=== PATIENT | female | born 1995 | race Caucasian/White ===

== ENCOUNTER → 2021-04-30 | Outpatient (CLI) | payer MEDICAID, OTHER | END | disposition home or self-care (01) | LOC: LABWHC1 11:51 | PROVIDERS: ATTEND Emergency Medicine | DX: Z20.822 Contact with and (suspected) exposure to COVID-19 (principal) | CPT/HCPCS: 87635 ==

== ENCOUNTER → 2021-05-01 | Outpatient (CLI) | payer MEDICAID, OTHER | END | disposition home or self-care (01) | LOC: LABWHC1 12:25 | PROVIDERS: ATTEND Emergency Medicine | DX: Z20.822 Contact with and (suspected) exposure to COVID-19 (principal) | CPT/HCPCS: 87635 ==

== ENCOUNTER → 2021-07-19 | Outpatient (CLI) | payer MEDICAID, OTHER | END | disposition home or self-care (01) | LOC: LABWHC1 15:36 | PROVIDERS: ATTEND Emergency Medicine | DX: U07.1 COVID-19 (principal) | CPT/HCPCS: 87635 ==

== ENCOUNTER → 2021-07-20 | Outpatient (CLI) | payer MEDICAID, OTHER | END | disposition home or self-care (01) | LOC: LABMAIN 20:03 | PROVIDERS: ATTEND Emergency Medicine | DX: Z20.822 Contact with and (suspected) exposure to COVID-19 (principal) | CPT/HCPCS: 87635 ==

== ENCOUNTER → 2021-07-20 | Outpatient (CLI) | payer MEDICAID, OTHER | END | disposition home or self-care (01) | LOC: LABWHC1 15:28 | PROVIDERS: ATTEND Emergency Medicine | DX: Z53.9 Procedure and treatment not carried out, unspecified reason (principal) ==

== ENCOUNTER 2024-07-26 03:09 | Inpatient (IN) | payer OTHER ==
[2024-07-26] MEDS: LACTATED RINGERS 1,000 ML IV SCH (03:40)
[2024-07-26] MEDS ORDERED: OXYTOCIN 10 UNIT/ML 1 ML VIAL IM PRN (03:47)
[2024-07-26] MEDS ORDERED: miSOPROStoL 200 MCG TAB PO PRN ×2 (03:47→18:31)
[2024-07-26] MEDS ORDERED: CARBOPROST TROMETHAMINE 250 MCG/ML 1 ML AMP IM PRN ×2 (03:47→07:25)
[2024-07-26] MEDS ORDERED: miSOPROStoL 200 MCG TAB RECTAL PRN (03:47)
[2024-07-26] MEDS ORDERED: LIDOCAINE 0.5% (PF) 5 MG/ML (50 ML SDV) SQ PRN (03:47)
[2024-07-26] MEDS ORDERED: METHYLERGONOVINE 0.2 MG/ML 1 ML AMP IM PRN (03:47)
[2024-07-26] MEDS ORDERED: TERBUTALINE 1 MG/ML VIAL SQ PRN (03:47)
[2024-07-26 04:12] LABS: Anisocytosis Slight; Basophils % (A) 0 %; Eosinophils % (A) 0 %; HCT 24.6 % (34.0-46.0); HGB 7.6 gm/dL (11.4-16.0); Hypochromasia Marked; Lymphocytes # (A) 2.1 k/uL (1.0-4.8); Lymphocytes % (A) 19 %; MCH 21.1 pg (25.0-35.0); MCHC 30.9 g/dL (31.0-37.0); MCV 68.3 fL (80.0-100.0); Mean Platelet Volume 8.4; Microcytosis Marked; Monocytes # (A) 0.5 k/uL (0-1.0); Monocytes % (A) 5 %; Neutrophils # (A) 7.9 k/uL (1.3-7.7); Neutrophils % (A) 74 %; Platelet Count 287 k/uL (150-450); Poikilocytosis Moderate; RBC 3.59 m/uL (3.80-5.40); RDW 16.5 % (11.5-15.5); WBC 10.7 k/uL (3.8-10.6)
[2024-07-26 04:17] LABS: Appearance,Urine Clear (Clear); Bacteria,Urine Rare /hpf; Bilirubin,Urine Negative (Negative); Blood,Urine Moderate (Negative); Color,Urine Yellow; Glucose,Urine (UA) Negative (Negative); Hyaline Casts,Urine 9 /lpf (0-2); Ketones,Urine Negative (Negative); Leukocyte Esterase,Urine Negative (Negative); Mucus,Urine Few /hpf; Nitrite,Urine Negative (Negative); Protein,Urine 2+ (Negative); RBC,Urine 14 /hpf (0-5); Specific Gravity,Urine 1.029 (1.001-1.035); Squamous Epithelial Cell,Urine 5 /hpf (0-4); Urobilinogen,Urine <2.0 mg/dL (<2.0); WBC,Urine 3 /hpf (0-5)
[2024-07-26 04:26] LABS: ALT 11 U/L (4-34); AST 21 U/L (14-36); African American GFR (CKD) >90 (>60 ml/min/1.73 sqM); Blood Urea Nitrogen 17 mg/dL (7-17); LDH 248 U/L (120-246); Non-African American GFR(CKD) >90 (>60 ml/min/1.73 sqM); Uric Acid 5.3 mg/dL (3.7-7.4)
[2024-07-26 04:27] LABS: Creatinine,Urine Random 228.1 mg/dL; INR 0.9 (<1.2); Protein/Creatinine Ratio,Urine 0.53; Prothrombin Time 9.8 sec (10.0-12.5)
[2024-07-26 04:30] LABS: Partial Thromboplastin Time 20.4 sec (22.0-30.0)
[2024-07-26 07:18] LABS: Glucose,Whole Blood 91 mg/dL (70-110)
[2024-07-26] MEDS: AMPICILLIN 2,000 MG in SODIUM CHLORIDE 0.9% 100 ML IVPB STA (07:33)
[2024-07-26] MEDS: BUTORPHANOL 1 MG/ML 1 ML VIAL IV PRN (07:37)
[2024-07-26] MEDS ORDERED: SODIUM CHLORIDE 0.9% 250 ML BAG ONE (08:38)
[2024-07-26] MEDS ORDERED: ROPIVACAINE 5 MG/ML 30 ML VIAL ONE (08:38)
[2024-07-26] MEDS ORDERED: fentaNYL (PF) 50 MCG/ML 5 ML AMP ONE (08:38)
[2024-07-26] MEDS: AMPICILLIN 1,000 MG in SODIUM CHLORIDE 0.9% 50 ML IVPB SCH (11:09)
[2024-07-26 11:49] LABS: Glucose,Whole Blood 83 mg/dL (70-110)
[2024-07-26] MEDS: CITRIC ACID-SODIUM CITRATE 15 ML CUP PO ONE (15:54)
[2024-07-26] MEDS ORDERED: HYDROmorphone (PF) 1 MG/ML ONE (16:10)
[2024-07-26] MEDS ORDERED: ONDANSETRON 4 MG/2 ML VIAL ONE (16:10)
[2024-07-26] MEDS ORDERED: OXYTOCIN 30 UNITS/500 ML NS BAG IV ONE (16:10)
[2024-07-26] MEDS ORDERED: MORPHINE SULFATE (PF) 0.3 MG/0.3 ML SYR ONE (16:10)
[2024-07-26] MEDS ORDERED: KETOROLAC 30 MG/ML 1 ML VIAL ONE (16:10)
[2024-07-26] MEDS ORDERED: NALBUPHINE (ANES) 10 MG/ML - 1 ML AMP ONE (16:10)
[2024-07-26] MEDS ORDERED: diphenhydrAMINE 25 MG CAP PO PRN (16:50)
[2024-07-26] MEDS ORDERED: ZOLPIDEM 5 MG TAB PO PRN (16:50)
[2024-07-26] MEDS ORDERED: METOCLOPRAMIDE 5 MG/ML 2 ML VIAL IVP PRN (16:50)
[2024-07-26] MEDS ORDERED: diphenhydrAMINE 50 MG/ML 1 ML VIAL IVP PRN ×2 (16:50)
[2024-07-26] MEDS ORDERED: LANOLIN CREAM 1 GM TUBE TOPICAL PRN (16:50)
[2024-07-26] MEDS ORDERED: ONDANSETRON 4 MG/2 ML VIAL IVP PRN (16:50)
[2024-07-26] MEDS ORDERED: diphenhydrAMINE 50 MG CAP PO PRN (16:50)
[2024-07-26] MEDS ORDERED: NALOXONE 0.4 MG/ML 1 ML VIAL IV PRN (16:50)
[2024-07-26] MEDS ORDERED: OXYTOCIN 30 UNITS/500 ML NS 30 UNIT in SALINE 1 500ML.BAG IV SCH (17:00)
[2024-07-26] MEDS: TRANEXAMIC 1,000 MG/100ML-NACL 1,000 MG in EMPTY BAG 1 BAG IV PRN (18:58)
[2024-07-26] MEDS: HYDROmorphone 1 MG/ML 1 ML SYRINGE IVP STA (19:28)
[2024-07-26] MEDS: ACETAMINOPHEN IV (For NPO) 1,000 MG in EMPTY BAG 1 BAG IVPB STA (20:32)
[2024-07-27] MEDS: SENNOSIDES-DOCUSATE SODIUM 1 EACH TAB PO SCH (00:13)
[2024-07-27] MEDS: KETOROLAC 15 MG/ML 1 ML VIAL IVP SCH (00:37)
[2024-07-27 01:39] LABS: Anisocytosis Moderate; HCT 22.9 % (34.0-46.0); HGB 7.4 gm/dL (11.4-16.0); Hypochromasia Marked; MCH 25.3 pg (25.0-35.0); MCHC 32.5 g/dL (31.0-37.0); Mean Platelet Volume 8.2; Microcytosis Moderate; Platelet Count 193 k/uL (150-450); Poikilocytosis Moderate; RBC 2.94 m/uL (3.80-5.40); RDW 20.2 % (11.5-15.5); WBC 15.7 k/uL (3.8-10.6)
[2024-07-27 01:51] LABS: MCV 77.9 fL (80.0-100.0)
[2024-07-27] MEDS: LACTATED RINGERS 1,000 ML IV SCH (03:00)
[2024-07-27] MEDS: LACTATED RINGERS 1,000 ML IV ONE (03:00)
[2024-07-27] MEDS: ACETAMINOPHEN TAB 500 MG TAB PO SCH (04:14)
[2024-07-27 05:37] LABS: Anisocytosis Slight; Basophils % (A) 0 %; Eosinophils % (A) 0 %; HCT 21.7 % (34.0-46.0); Hypochromasia Marked; Lymphocytes # (A) 0.8 k/uL (1.0-4.8); Lymphocytes % (A) 6 %; MCHC 32.4 g/dL (31.0-37.0); MCV 77.2 fL (80.0-100.0); Microcytosis Moderate; Monocytes # (A) 0.6 k/uL (0-1.0); Monocytes % (A) 4 %; Neutrophils # (A) 12.8 k/uL (1.3-7.7); Neutrophils % (A) 89 %; Platelet Count 173 k/uL (150-450); Poikilocytosis Marked; RBC 2.81 m/uL (3.80-5.40); RDW 19.6 % (11.5-15.5); WBC 14.3 k/uL (3.8-10.6)
--- NOTE | 2024-07-27 07:57 | P.HPOB ---
History of Present Illness H&P Date: 07/26/24 Chief Complaint: spontaneous rupture of membranes 29-year-old presented at 38 weeks and 5 days complaining of rupture of amniotic membranes at 1300 on 07/25/2024. Patient presented 2 cm dilated 70% effaced and -2 station. She is nithin irregularly. heart tones category 1. Review of Systems All systems: negative Constitutional: Denies chills, Denies fever Eyes: denies blurred vision, denies pain Ears, nose, mouth and throat: Denies headache, Denies sore throat Cardiovascular: Denies chest pain, Denies shortness of breath Respiratory: Denies cough Gastrointestinal: Denies abdominal pain, Denies diarrhea, Denies nausea, Denies vomiting Genitourinary: Denies dysuria, Denies hematuria Musculoskeletal: Denies myalgias Integumentary: Denies pruritus, Denies rash Neurological: Denies numbness, Denies weakness Psychiatric: Denies anxiety, Denies depression Endocrine: Denies fatigue, Denies weight change Past Medical History Past Medical History: Asthma, Diabetes Mellitus, GERD/Reflux, Skin Disorder Additional Past Medical History / Comment(s): psoriasis History of Any Multi-Drug Resistant Organisms: None Reported Additional Past Surgical History / Comment(s): wisdom teeth Past Anesthesia/Blood Transfusion Reactions: No Reported Reaction Past Psychological History: ADD/ADHD, Anxiety, Depression Additional Psychological History / Comment(s): on paxil for depression Smoking Status: Never smoker Past Drug Use History: None Reported - Past Family History Mother Additional Family Medical History / Comment(s): substance abuse, mental health Medications and Allergies Home Medications Medication Instructions Recorded Confirmed Type Omeprazole [PriLOSEC] 10 mg PO DAILY 07/21/24 07/21/24 History PARoxetine HCL [Paxil] 30 mg PO DAILY 07/21/24 07/21/24 History Vit No.179/Iron/Folic 1 each PO DAILY 07/21/24 07/21/24 History [ Tablet] Allergies Allergy/AdvReac Type Severity Reaction Status Date / Time Sulfa (Sulfonamide Allergy Rash/Hives Verified 07/21/24 11:59 Antibiotics) Exam Osteopathic Statement: *. No significant issues noted on an osteopathic structural exam other than those noted in the History and Physical/Consult. Vital Signs Temp Pulse Pulse Resp BP BP Pulse Ox 07/27/24 05:40 98 F 72 17 120/71 07/27/24 04:51 17 07/27/24 04:40 75 17 109/71 07/27/24 03:40 97.9 F 67 17 111/67 07/27/24 02:40 65 16 125/63 07/27/24 01:40 96.4 F L 68 16 125/64 97 07/27/24 00:50 97.2 F L 70 16 111/62 97 07/26/24 23:30 97.4 F L 72 16 118/65 98 07/26/24 21:45 97.7 F 82 17 111/61 99 07/26/24 21:30 71 17 109/56 98 07/26/24 21:15 75 17 111/56 99 07/26/24 21:00 73 16 113/60 99 07/26/24 20:53 86 17 110/57 98 07/26/24 20:45 86 16 110/57 99 07/26/24 20:30 80 16 108/59 99 07/26/24 20:15 98.6 F 81 17 104/57 99 07/26/24 20:02 98.6 F 83 16 100/56 07/26/24 20:00 83 16 100/56 98 07/26/24 19:45 83 17 106/60 100 07/26/24 19:42 83 16 106/60 100 07/26/24 19:30 99.2 F 91 91 17 105/60 105/60 99 07/26/24 19:29 99.2 F 91 16 105/60 07/26/24 18:53 93 16 86/49 98 07/26/24 18:44 98.9 F 95 16 86/49 99 07/26/24 18:43 98.9 F 96 16 90/55 98 07/26/24 18:38 86 16 90/55 98 07/26/24 18:24 98.4 F 93 17 90/51 07/26/24 18:23 112 H 16 90/51 97 07/26/24 18:15 98.0 F 98 18 78/44 07/26/24 18:08 98 16 87/50 99 07/26/24 17:53 110 H 16 92/50 99 07/26/24 17:38 99 17 87/48 97 07/26/24 17:23 108 H 16 88/54 98 07/26/24 17:08 84 16 91/55 95 07/26/24 16:53 97.5 F L 90 17 87/54 95 07/26/24 11:27 97.1 F L 105 H 16 152/81 100 Intake and Output 07/26/24 07/27/24 07/27/24 22:59 06:59 14:59 Intake Total 1740 Output Total 3162 307 Balance -1422 -307 Intake: IV 500 Blood Product 1240 Rc As-1 Unit 310 [id number] Rc As-1 Unit 310 [id number] Output: Urine 190 150 Output, Quantitative 2972 157 Blood Loss Other: Voiding Method Indwelling Catheter Indwelling Catheter Heart: Regular rate and rhythm Lungs: Clear to auscultation bilaterally Abdomen: Soft, nontender Extremities: Negative Homans signl Results Result Diagrams: 07/27/24 05:09 07/26/24 03:50 Abnormal Lab Results - Last 24 Hours (Table) 07/26/24 07/27/24 07/27/24 Range/Units 03:50 01:09 05:09 WBC 15.7 H 14.3 H (3.8-10.6) k/uL RBC 2.94 L 2.81 L (3.80-5.40) m/uL Hgb 7.4 L 7.0 L (11.4-16.0) gm/dL Hct 22.9 L 21.7 L (34.0-46.0) % MCV 77.9 L D 77.2 L (80.0-100.0) fL RDW 20.2 H 19.6 H (11.5-15.5) % Neutrophils # 12.8 H (1.3-7.7) k/uL Lymphocytes # 0.8 L (1.0-4.8) k/uL Crossmatch See Detail Assessment and Plan (1) Spontaneous rupture of membranes Current Visit: Yes Status: Acute Code(s): VMB3071 - SNOMED Code(s): 60631 4005 (2) 38 weeks gestation of Current Visit: Yes Status: Acute Code(s): Z3A.38 - 38 WEEKS GESTATION OF SNOMED Code(s): 12341148 Plan: 1. Admit to family place 2. Pitocin augmentation if necessary 3. Anticipate normal vaginal delivery
--- NOTE | 2024-07-27 08:04 | P.OP ---
Date of Procedure: 07/26/24 Preoperative Diagnosis: 1.prolonged rupture of membranes 2. 38 weeks 5 days gestation 3. arrest of descent 4. tachycardia Postoperative Diagnosis: same Procedure(s) Performed: Primary low transverse Anesthesia: epidural Surgeon: Prachi Gonzalez [employer] Actor #1: Levi Dailey Estimated Blood Loss (ml): 819 IV fluids (ml): 1,000 Urine output (ml): 100 Pathology: other (placenta) Condition: stable Disposition: floor Indications for Procedure: 29-year-old presented at 38 weeks and 5 days with spontaneous rupture of membranes. Her cervix was 2 cm dilated when she presented and Pitocin augmentation had been started. At 18 hours of rupture ampicillin was started. She progressed slowly to complete and did have an epidural. Patient pushed for 3 hours without descent of the head. At this time, the baby started to have minimal variability and some tachycardia. Patient sent her oral was held at bedside. Need for expedited delivery was discussed and informed consent was obtained. section was called. Operative Findings: Viable female, Apgars 8, 9, weight 9 lbs. 10 oz. Normal uterus, tubes, ovaries. Description of Procedure: Patient was taken to the operating room where epidural anesthesia was found be adequate. She was prepped and draped in normal sterile fashion in dorsal supine position with a leftward tilt. Pfannenstiel skin incision was made the scalpel and carried through to the underlying layer of fascia with the scalpel. Fascia was incised in midline and carried bilaterally with the Pena scissors. The superior aspect of the fascial incision was grasped with Mckee clamps elevated and the underlying rectus muscles dissected off with the Pena's. Attention was then turned to inferior aspect of same incision which in a similar fashion was grasped tented up and the underlying rectus muscles dissected off with the Pena's. The rectus muscles were the midline and the peritoneum was identified tented up and entered sharply with the scalpel. The incision was extended superiorly and inferiorly with good visualization of the bladder. The bladder blade was inserted and the vesicouterine peritoneum was incised the Metzenbaums then carried bilaterally and bladder flap created digitally. A low transverse incision was then made on the uterus with the scalpel. This was carried bilaterally and digital manner. Infant's head delivered atraumatically, nose and mouth bulb suctioned, cord clamped and cut, handed off to waiting nurses. Apgars 8,9, weight 9 lbs. 10 oz. Placenta delivered manually, intact with three-vessel cord. The uterus is exteriorized and cleared of all clots and debris. The uterine incision was closed with 0 Vicryl in a running locked fashion. Second layer of the same sutures used in imbricating fashion to obtain excellent hemostasis. Both ovaries and tubes appeared normal. The uterus was placed back into the abdomen. The peritoneum was reapproximated using 2-0 Vicryl in a running fashion. The fascia was reapproximated using 0 Vicryl in a running fashion. The subcutaneous tissues closed with 3-0 Vicryl running fashion. The skin was closed shad. Patient tolerated the procedure well, sponge and instrument counts were correct times 2 and she was taken to the recovery room in stable condition.
--- NOTE | 2024-07-27 08:07 | P.PN ---
Progress Note - Text Progress Note Date: 07/27/24 Patient doing well. Ambulating w/o weakness or paresthesia. Pain controlled. Denies headache or significant pruritis. Back - spinal site clean and dry A/P POD #1 s/p w/ spinal duramorph - doing well
--- NOTE | 2024-07-27 08:07 | P.PN ---
Progress Note - Text Progress Note Date: 07/26/24 Called to see patient regarding continued vaginal bleeding and symptomatic anemia. Patient's hemoglobin upon admission was only 7.6. She did lose over 800 mL in her section. She then continued to ooze blood and loss a total of 2665 mL of blood. She had been given Pitocin, [place] a. I came to see the patient and evacuated several clots and placed the ARSLAN. Once this was placed, her bleeding slowed significantly. She had been given fluid boluses and some ephedrine from the [facility]. I ordered 2 units of packed red blood cells. Her vital signs stabilized as the bleeding was resolving and the units were going in. All questions from her, her significant other and her parents were a nswered.
--- NOTE | 2024-07-27 08:10 | P.PNOBGPC ---
Subjective - Subjective Principal diagnosis: Status post primary low transverse postop day 1 Interval history: Patient seen and examined. Her vital signs of stabilized. Her hemoglobin is 7 this morning. Though she did come in at 7.6 she was also complaining of fatigue and was quite pale on admission. I will give her 1 more unit of packed red blood cells. Vagina was removed this morning and her bleeding has resolved. Her pain is controlled. Her output was low overnight 150 but when I went to remove the vagina her output and the catheter is 100 right now. We'll give him another unit of blood and watch her input and output closely. Once she is transfused this next unit and can get up to the bedside we will remove the catheter. Objective - Vital Signs Latest vital signs: Vital Signs Temp Pulse Pulse Resp BP BP Pulse Ox 07/27/24 08:02 98.3 F 80 17 122/71 97 07/27/24 05:40 98 F 72 17 120/71 07/27/24 04:51 17 07/27/24 04:40 75 17 109/71 07/27/24 03:40 97.9 F 67 17 111/67 07/27/24 02:40 65 16 125/63 07/27/24 01:40 96.4 F L 68 16 125/64 97 07/27/24 00:50 97.2 F L 70 16 111/62 97 07/26/24 23:30 97.4 F L 72 16 118/65 98 07/26/24 21:45 97.7 F 82 17 111/61 99 07/26/24 21:30 71 17 109/56 98 07/26/24 21:15 75 17 111/56 99 07/26/24 21:00 73 16 113/60 99 07/26/24 20:53 86 17 110/57 98 07/26/24 20:45 86 16 110/57 99 07/26/24 20:30 80 16 108/59 99 07/26/24 20:15 98.6 F 81 17 104/57 99 07/26/24 20:02 98.6 F 83 16 100/56 07/26/24 20:00 83 16 100/56 98 07/26/24 19:45 83 17 106/60 100 07/26/24 19:42 83 16 106/60 100 07/26/24 19:30 99.2 F 91 91 17 105/60 105/60 99 07/26/24 19:29 99.2 F 91 16 105/60 07/26/24 18:53 93 16 86/49 98 07/26/24 18:44 98.9 F 95 16 86/49 99 07/26/24 18:43 98.9 F 96 16 90/55 98 07/26/24 18:38 86 16 90/55 98 07/26/24 18:24 98.4 F 93 17 90/51 07/26/24 18:23 112 H 16 90/51 97 07/26/24 18:15 98.0 F 98 18 78/44 07/26/24 18:08 98 16 87/50 99 07/26/24 17:53 110 H 16 92/50 99 07/26/24 17:38 99 17 87/48 97 07/26/24 17:23 108 H 16 88/54 98 07/26/24 17:08 84 16 91/55 95 07/26/24 16:53 97.5 F L 90 17 87/54 95 07/26/24 11:27 97.1 F L 105 H 16 152/81 100 Intake and Output 07/26/24 07/27/24 07/27/24 22:59 06:59 14:59 Intake Total 1740 1600 Output Total 3162 307 100 Balance -1422 -307 1500 Intake: IV 500 1000 Oral 600 Blood Product 1240 Rc As-1 Unit 310 [id number] Rc As-1 Unit 310 [id number] Output: Urine 190 150 100 Output, Quantitative 2972 157 Blood Loss Other: Voiding Method Indwelling Catheter Indwelling Catheter - Exam Lungs: bilateral: normal Chest: Normal S1, Normal S2 Extremities: Present: normal Abdomen: Present: normal appearance, soft. Absent: distention, tenderness Incision: Present: normal, dry, intact Uterus: Present: normal, firm - Labs Labs: Abnormal Lab Results - Last 24 Hours (Table) 07/26/24 07/27/24 07/27/24 Range/Units 03:50 01:09 05:09 WBC 15.7 H 14.3 H (3.8-10.6) k/uL RBC 2.94 L 2.81 L (3.80-5.40) m/uL Hgb 7.4 L 7.0 L (11.4-16.0) gm/dL Hct 22.9 L 21.7 L (34.0-46.0) % MCV 77.9 L D 77.2 L (80.0-100.0) fL RDW 20.2 H 19.6 H (11.5-15.5) % Neutrophils # 12.8 H (1.3-7.7) k/uL Lymphocytes # 0.8 L (1.0-4.8) k/uL Crossmatch See Detail Assessment and Plan (1) Spontaneous rupture of membranes Current Visit: Yes Status: Resolved Code(s): CDW8420 - SNOMED Code(s): 562800227 (2) 38 weeks gestation of Current Visit: Yes Status: Resolved Code(s): Z3A.38 - 38 WEEKS GESTATION OF SNOMED Code(s): 42885158 (3) Status post primary low transverse section Current Visit: Yes Status: Acute Code(s): Z98.891 - HISTORY OF UTERINE SCAR FROM PREVIOUS SURGERY SNOMED Code(s): 095237862 (4) Acute on chronic blood loss anemia Current Visit: Yes Status: Acute Code(s): D62 - ACUTE POSTHEMORRHAGIC ANEMIA SNOMED Code(s): 774933471 Plan: 1. transfuse PRBCs 2. Is an Os
[2024-07-27] MEDS: HYDROmorphone 1 MG/ML 1 ML SYRINGE IVP STA (22:03)
[2024-07-27] MEDS: IBUPROFEN 800 MG TAB PO SCH (23:15)
[2024-07-28 04:21] LABS: Anisocytosis Slight; Basophils % (A) 0 %; Eosinophils % (A) 0 %; HCT 23.4 % (34.0-46.0); HGB 7.8 gm/dL (11.4-16.0); Hypochromasia Marked; Lymphocytes # (A) 1.2 k/uL (1.0-4.8); Lymphocytes % (A) 7 %; MCH 26.2 pg (25.0-35.0); MCHC 33.1 g/dL (31.0-37.0); MCV 79.2 fL (80.0-100.0); Mean Platelet Volume 8.7; Microcytosis Slight; Monocytes # (A) 0.6 k/uL (0-1.0); Monocytes % (A) 4 %; Neutrophils # (A) 14.6 k/uL (1.3-7.7); Neutrophils % (A) 88 %; Platelet Count 186 k/uL (150-450); Poikilocytosis Marked; RBC 2.96 m/uL (3.80-5.40); RDW 19.5 % (11.5-15.5); WBC 16.6 k/uL (3.8-10.6)
--- NOTE | 2024-07-28 11:48 | P.PNOBGPC ---
Subjective - Subjective Principal diagnosis: s/p primary Interval history: The patient is doing well this morning and had no acute events overnight. She has no complaints this morning. She reports minimal lochia, passing flatus, voiding without difficulty, ambulating, and eating/drinking without nausea or vomiting. She is her infant without difficulty. She denies chest pain, shortness of breathing, fevers, or chills overnight. She denies pain or swelling in the legs. Patient reports: Reports appetite normal, Reports voiding normally, Reports pain well controlled, Reports ambulating normally : doing well, other (in nursery for antibiotics) Objective - Vital Signs Latest vital signs: Vital Signs Temp Pulse Pulse Resp BP BP BP 07/28/24 08:00 98.0 F 98 14 117/75 07/27/24 23:27 98.0 F 78 16 132/85 07/27/24 16:00 98.1 F 81 17 125/77 07/27/24 12:20 98.1 F 86 17 121/80 Pulse Ox 07/28/24 08:00 99 07/27/24 23:27 97 07/27/24 16:00 97 07/27/24 12:20 97 Intake and Output 07/27/24 07/28/24 07/28/24 22:59 06:59 14:59 Intake Total 600 0 Output Total 375 Balance 225 0 Intake: Oral 600 0 Output: Urine 375 Other: # Voids 1 1 - Exam Extremities: Present: normal Abdomen: Present: other (not examined as patient was holding infant in nursery) Incision: Present: other (not examined as patient was holding infant in nursery) Uterus: Present: other (not examined as patient was holding in nursery) - Labs Labs: Abnormal Lab Results - Last 24 Hours (Table) 07/26/24 07/28/24 Range/Units 03:50 03:54 WBC 16.6 H (3.8-10.6) k/uL RBC 2.96 L (3.80-5.40) m/uL Hgb 7.8 L (11.4-16.0) gm/dL Hct 23.4 L (34.0-46.0) % MCV 79.2 L (80.0-100.0) fL RDW 19.5 H (11.5-15.5) % Neutrophils # 14.6 H (1.3-7.7) k/uL Crossmatch See Detail Assessment and Plan Assessment: 29 year old now POD#2 s/p primary section for arrest of descent Plan: 1. postoperative. doing well, meeting all milestones appropritaely. 2. viable female . in nursery receiving IV abx. 3. PPH. Hgb now stable, patient asymptomatic. Dispo: Continue inpatient management
[2024-07-28] MEDS: ONDANSETRON ODT 4 MG TAB PO PRN (18:00)
[2024-07-28] MEDS: FERROUS SULFATE 325 MG TAB PO SCH (18:07)
[2024-07-29 05:08] LABS: Anisocytosis Slight; HCT 21.2 % (34.0-46.0); Hypochromasia Marked; MCH 25.7 pg (25.0-35.0); MCHC 32.3 g/dL (31.0-37.0); MCV 79.4 fL (80.0-100.0); Mean Platelet Volume 8.9; Microcytosis Slight; Platelet Count 213 k/uL (150-450); Poikilocytosis Moderate; RBC 2.67 m/uL (3.80-5.40); WBC 14.6 k/uL (3.8-10.6)
[2024-07-29 05:24] LABS: HGB 6.9 gm/dL (11.4-16.0)
[2024-07-30] MEDS: SIMETHICONE 80 MG CHEWABLE PO PRN (05:36)
[2024-07-30] MEDS: FUROSEMIDE 10 MG/ML 2 ML VIAL IV STA (08:50)
[2024-07-30 09:40] LABS: Anisocytosis Moderate; Basophils % (A) 0 %; Eosinophils # (A) 0.2 k/uL (0-0.7); Eosinophils % (A) 1 %; HCT 23.4 % (34.0-46.0); HGB 7.5 gm/dL (11.4-16.0); Hypochromasia Marked; Lymphocytes # (A) 1.7 k/uL (1.0-4.8); Lymphocytes % (A) 12 %; MCH 25.5 pg (25.0-35.0); MCHC 32.2 g/dL (31.0-37.0); MCV 79.3 fL (80.0-100.0); Mean Platelet Volume 8.3; Microcytosis Slight; Monocytes # (A) 0.4 k/uL (0-1.0); Monocytes % (A) 3 %; Neutrophils # (A) 11.8 k/uL (1.3-7.7); Neutrophils % (A) 83 %; Platelet Count 265 k/uL (150-450); Poikilocytosis Marked; RBC 2.95 m/uL (3.80-5.40); RDW 20.5 % (11.5-15.5); WBC 14.2 k/uL (3.8-10.6)
[2024-07-30 09:43] LABS: ALT 24 U/L (4-34); AST 30 U/L (14-36); African American GFR (CKD) >90 (>60 ml/min/1.73 sqM); Albumin 2.6 g/dL (3.5-5.0); Alkaline Phosphatase 124 U/L (38-126); Anion Gap 4 mmol/L; Blood Urea Nitrogen 12 mg/dL (7-17); Calcium 8.2 mg/dL (8.4-10.2); Carbon Dioxide 27 mmol/L (22-30); Chloride 107 mmol/L (98-107); Glucose 88 mg/dL (74-99); Non-African American GFR(CKD) >90 (>60 ml/min/1.73 sqM); Potassium 3.8 mmol/L (3.5-5.1); Sodium 138 mmol/L (137-145); Total Bilirubin 0.3 mg/dL (0.2-1.3)
--- NOTE | 2024-07-30 13:35 | P.PNOBGPC ---
Subjective - Subjective Principal diagnosis: S/P 1*LTCS POD #4 Interval history: Pt seen and examined. Not dizzy but SOB with laying back this morning and was very swollen, pitting edema with high BPs in the 170's over 80's. I gave her one dose of lasix this morning and her SOB has resolved, feeling a lot better. She is having some vomitting though. Will work on walking a little more and possibly reglan. Patient reports: Reports pain well controlled, Reports ambulating normally, Denies dizzy ambulation [place]: doing well Objective - Vital Signs Latest vital signs: Vital Signs Temp Pulse Resp BP BP Pulse Ox 07/30/24 10:30 16 144/91 135/81 07/30/24 08:00 98.5 F 15 182/93 174/93 98 07/30/24 04:00 98.6 F 72 18 155/88 98 07/29/24 23:49 97.9 F 66 16 152/88 07/29/24 16:00 98.3 F 72 16 136/90 Intake and Output 07/29/24 07/30/24 07/30/24 22:59 06:59 14:59 Output Total 1400 Balance -1400 Output: Urine 1250 Emesis 150 - Exam Lungs: bilateral: normal Chest: Normal S1, Normal S2 Extremities: Present: normal Abdomen: Present: normal appearance, soft. Absent: distention, tenderness Incision: Present: normal, dry, intact Uterus: Present: normal, firm - Labs Labs: Abnormal Lab Results - Last 24 Hours (Table) 07/30/24 07/30/24 Range/Units 09:15 09:15 WBC 14.2 H (3.8-10.6) k/uL RBC 2.95 L (3.80-5.40) m/uL Hgb 7.5 L (11.4-16.0) gm/dL Hct 23.4 L (34.0-46.0) % MCV 79.3 L (80.0-100.0) fL RDW 20.5 H (11.5-15.5) % Neutrophils # 11.8 H (1.3-7.7) k/uL Calcium 8.2 L (8.4-10.2) mg/dL Total Protein 5.0 L (6.3-8.2) g/dL Albumin 2.6 L (3.5-5.0) g/dL Assessment and Plan (1) Spontaneous rupture of membranes Current Visit: Yes Status: Resolved Code(s): UTQ5992 - SNOMED Code(s): 897929340 (2) 38 weeks gestation of Current Visit: Yes Status: Resolved Code(s): Z3A.38 - 38 WEEKS GESTATION OF SNOMED Code(s): 83119788 (3) Status post primary low transverse section Current Visit: Yes Status: Acute Code(s): Z98.891 - HISTORY OF UTERINE SCAR FROM PREVIOUS SURGERY SNOMED Code(s): 172555576 (4) Acute on chronic blood loss anemia Current Visit: Yes Status: Acute Code(s): D62 - ACUTE POSTHEMORRHAGIC ANEMIA SNOMED Code(s): 745826678 (5) Pre-eclampsia Current Visit: Yes Status: Acute Code(s): O14.90 - UNSPECIFIED PRE- ECLAMPSIA, UNSPECIFIED TRIMESTER SNOMED Code(s): 294787911 Plan: 1. high BPs now that hgb has stabilized. consistent with pre-eclampsia. She had a one time dose of lasix and if cont with higher than 160/110 then will treat. 2. checked CMP, AST, ALT and a blood culture. She continues to have an elevation in wbc but trending down.
[2024-07-30] MEDS: ONDANSETRON 4 MG/2 ML VIAL IVP PRN (16:01)
[2024-07-30] MEDS: LABETALOL 100 MG TAB PO SCH (17:05)
[2024-07-30] MEDS: FAMOTIDINE 20 MG/2 ML VIAL IV SCH (17:05)
--- NOTE | 2024-07-31 11:44 | P.PNOBGPC ---
Subjective - Subjective Principal diagnosis: S/P 1*LTCS POD #5 Interval history: Pt seen and examined. Feeling ok. still some nausea but has not vomitted in almost 24 hours. started pepcid yesterday. We also started labetalol 100mg bid. Her BPs come down well with this. She denies GTZ, CP, Calf pain, vision changes. Patient reports: Reports voiding normally, Reports pain well controlled, Reports appetite poor Objective - Vital Signs Latest vital signs: Vital Signs Temp Pulse Resp BP BP Pulse Ox 07/31/24 08:00 98.4 F 74 16 134/81 98 07/31/24 06:41 71 16 135/81 97 07/31/24 04:10 56 L 16 145/89 98 07/31/24 04:00 98.0 F 62 15 160/88 98 07/31/24 00:00 98.6 F 61 16 133/79 99 07/30/24 19:30 98.4 F 77 15 109/64 99 07/30/24 16:00 98.2 F 16 155/93 100 Intake and Output 07/30/24 07/31/24 07/31/24 22:59 06:59 14:59 Intake Total 960 Output Total 200 400 Balance 760 -400 Intake: Oral 960 Output: Urine 200 400 Other: Voiding Method Indwelling Catheter # Voids 2 1 - Exam Lungs: bilateral: normal Chest: Normal S1, Normal S2 Extremities: Present: normal, edema (2+) Abdomen: Present: normal appearance, soft. Absent: distention, tenderness Incision: Present: normal, dry, intact Uterus: Present: normal, firm Assessment and Plan (1) Spontaneous rupture of membranes Current Visit: Yes Status: Resolved Code(s): IBJ5135 - SNOMED Code(s): 568833807 (2) 38 weeks gestation of Current Visit: Yes Status: Resolved Code(s): Z3A.38 - 38 WEEKS GESTATION OF SNOMED Code(s): 63132291 (3) Status post primary low transverse section Current Visit: Yes Status: Acute Code(s): Z98.891 - HISTORY OF UTERINE SCAR FROM PREVIOUS SURGERY SNOMED Code(s): 853397754 (4) Acute on chronic blood loss anemia Current Visit: Yes Status: Acute Code(s): D62 - ACUTE POSTHEMORRHAGIC ANEMIA SNOMED Code(s): 629033272 (5) Pre-eclampsia Current Visit: Yes Status: Acute Code(s): O14.90 - UNSPECIFIED PRE- ECLAMPSIA, UNSPECIFIED TRIMESTER SNOMED Code(s): 804886606 Plan: 1. cont labetalol 100mg bid and monitor BPs to know it is working well. 2. increase ambulation 3. po pain meds.
[2024-07-31] MEDS: IBUPROFEN 400 MG TAB PO SCH (12:33)
[2024-07-31] MEDS ORDERED: IBUPROFEN 400 MG TAB PO SCH (16:00)
[2024-07-31] MEDS: LABETALOL 200 MG TAB PO SCH (17:05)
[2024-07-31] MEDS: NIFEdipine XL 30 MG TAB.ER.24 PO SCH (21:10)
[2024-07-31] MEDS: FAMOTIDINE 20 MG TAB PO STA (21:48)
--- NOTE | 2024-07-31 22:00 | XR ---
EXAMINATION TYPE: XR chest 2V DATE OF EXAM: 07/31/2024 9:50 PM COMPARISON: No recent priors. CLINICAL INDICATION: Female, 29 years old with history of chest pain; [facility] TECHNIQUE: XR chest 2V Frontal and lateral views of the chest. FINDINGS: Lungs/Pleura: There is no evidence of pleural effusion, focal consolidation, or pneumothorax. Pulmonary vascularity: Unremarkable. Heart/mediastinum: Cardiomediastinal silhouette is unremarkable. Musculoskeletal: No acute osseous pathology. IMPRESSION: No acute cardiopulmonary disease/process. [facility], , 07/31/2024 9:57 PM
[2024-07-31] MEDS: hydrALAZINE HCL 25 MG TAB PO STA (23:10)
--- NOTE | 2024-08-01 04:23 | P.CONS ---
History of Present Illness - Reason for Consult Consult date: 07/31/24 - History of Present Illness Patient is a 29-year-old female who is status post low transverse on 07/26, complicated by gestational diabetes mellitus, without prior history of high blood pressure who was seen as a medical consult for elevated blood pressure and chest discomfort. Patient reports that earlier in the day while her blood pressure was elevated with systolic in the 170s, that she was experiencing a diffuse headache which has now resolved. She reports intermittent substernal chest tightness with shortness of breath associated with some back pain. Unable to quantify the chest discomfort but reports that it is nonpleuritic without nausea, vomiting, diaphoresis, or dizziness. The patient has experienced significant lower extremity edema during her but notes that it is unchanged over the past few days. Denies lower extremity pain. Does report feeling very anxious. Also denied fever, chills, cough, abdominal pain, diarrhea. Of note, the patient did receive 3 units of PRBCs. Chest x-ray was unremarkable with EKG also reviewed showing sinus rhythm with diffuse T wave inversions without any ST segment changes noted as reviewed by me. Laboratory evaluation was remarkable for hemoglobin of 7.5. Review of systems: Pertinent positives and negatives as discussed in HPI, a complete review of systems was performed and all other systems are negative. Physical examination: Vital signs reviewed General: non toxic, no distress, appears at stated age Derm: no unusual rashes/lesions, warm Head: atraumatic, normocephalic, symmetric Eyes: EOMI, no lid lag, anicteric sclera, pupils equal round reactive to light ENT: Nose and ears atraumatic Neck: No cervical lymphadenopathy, trachea midline, supple Mouth: no lip lesion, mucus membranes moist Cardiovascular: S1S2 reg, no murmur, positive dorsalis pedis pulse bilateral, 2+ lower extremity bilateral pitting edema Lungs: CTA bilateral, no rhonchi, no rales, no accessory muscle use Abdominal: soft, nontender to palpation, no guarding Ext: muscle strength 5 out of 5 in all 4 extremities grossly, no gross muscle atrophy, no contractures, Neuro: CN II-XI grossly intact, no gross focal neuro deficits Psych: Alert, oriented, tearful affect Assessment: Hypertension, POD # 5 Intermittent chest discomfort with shortness of breath, concern for possible component of anxiety Imaging: Chest x-ray was unremarkable with EKG also reviewed showing sinus rhythm with diffuse T wave inversions without any ST segment changes noted as reviewed by me. Data Review: Laboratory evaluation was remarkable for hemoglobin of 7.5 with troponin less than 0.012 Plan: Continue with Procardia 30 mg p.o. daily along with labetalol 300 mg p.o. twice daily. Add hydralazine 25 mg p.o. 3 times daily Xanax 0.25 mg po once ordered Trend troponin We appreciate this opportunity to be involved in this patient's care. We will follow the patient with you. For any further questions, please not hesitate to contact the [facility] emergency department inpatient team. Past Medical History Past Medical History: Asthma, Diabetes Mellitus, GERD/Reflux, Skin Disorder Additional Past Medical History / Comment(s): psoriasis History of Any Multi-Drug Resistant Organisms: None Reported Additional Past Surgical History / Comment(s): wisdom teeth Past Anesthesia/Blood Transfusion Reactions: No Reported Reaction Past Psychological History: ADD/ADHD, Anxiety, Depression Additional Psychological History / Comment(s): on paxil for depression Smoking Status: Never smoker Past Drug Use History: None Reported - Past Family History Mother Additional Family Medical History / Comment(s): substance abuse, mental health Medications and Allergies Home Medications Medication Instructions Recorded Confirmed Type Omeprazole [PriLOSEC] 10 mg PO DAILY 07/21/24 07/21/24 History PARoxetine HCL [Paxil] 30 mg PO DAILY 07/21/24 07/21/24 History Vit No.179/Iron/Folic 1 each PO DAILY 07/21/24 07/21/24 History [ Tablet] Allergies Allergy/AdvReac Type Severity Reaction Status Date / Time Sulfa (Sulfonamide Allergy Rash/Hives Verified 07/21/24 11:59 Antibiotics) Physical Exam Vitals: Vital Signs Temp Pulse Resp BP Pulse Ox 08/01/24 04:00 76 146/87 98 08/01/24 02:00 98.3 F 76 15 136/79 97 07/31/24 23:50 86 19 138/82 99 07/31/24 23:05 58 L 16 163/107 100 07/31/24 22:15 64 16 171/91 100 07/31/24 20:32 62 16 171/94 98 07/31/24 20:30 98.0 F 63 19 172/101 98 07/31/24 18:39 150/87 07/31/24 16:00 98.5 F 68 16 152/95 98 07/31/24 08:00 98.4 F 74 16 134/81 98 07/31/24 06:41 71 16 135/81 97 Intake and Output 07/31/24 07/31/24 08/01/24 14:59 22:59 06:59 Intake Total 480 Balance 480 Intake: Oral 480 Other: Voiding Method Toilet Toilet Indwelling Catheter # Voids 2 2 # Bowel Movements 1 Results CBC & Chem 7: 07/30/24 09:15 07/30/24 09:15 Labs: Microbiology - Last 24 Hours (Table) 07/30/24 08:40 Blood Culture - Preliminary Blood
[2024-08-01] MEDS: LABETALOL 100 MG TAB PO SCH (06:16)
--- NOTE | 2024-08-01 08:05 | P.PNOBGPC ---
Subjective - Subjective Principal diagnosis: s/p section Interval history: The patient is doing well this morning. Overnight she had sharp, stabbing chest pressure. An EKG, chest XR, troponins were obtained and ruled out IL. Medicine saw the patient and started Hydralazine 25mg PO TID. She has no complaints this morning. She reports minimal lochia, passing flatus, voiding without difficulty, ambulating, and eating/drinking without nausea or vomiting. She is breast feeding her infant without difficulty. She denies chest pain, shortness of breathing, fevers, or chills overnight. She denies pain or swelling in the legs. Patient reports: Reports appetite normal, Reports voiding normally, Reports pain well controlled, Reports ambulating normally : doing well, other (in nursery) Objective - Vital Signs Latest vital signs: Vital Signs Temp Pulse Resp BP Pulse Ox 08/01/24 06:00 98.3 F 76 15 152/89 98 08/01/24 04:00 76 146/87 98 08/01/24 02:00 98.3 F 76 15 136/79 97 07/31/24 23:50 86 19 138/82 99 07/31/24 23:05 58 L 16 163/107 100 07/31/24 22:15 64 16 171/91 100 07/31/24 20:32 62 16 171/94 98 07/31/24 20:30 98.0 F 63 19 172/101 98 07/31/24 18:39 150/87 07/31/24 16:00 98.5 F 68 16 152/95 98 07/31/24 08:00 98.4 F 74 16 134/81 98 Intake and Output 07/31/24 08/01/24 08/01/24 22:59 06:59 14:59 Intake Total 480 Balance 480 Intake: Oral 480 Other: Voiding Method Toilet Toilet Indwelling Catheter # Voids 2 1 # Bowel Movements 1 - Exam Extremities: Present: normal Abdomen: Present: normal appearance, soft Incision: Present: normal, dry, intact Uterus: Present: normal, firm - Labs Labs: Microbiology - Last 24 Hours (Table) 07/30/24 08:40 Blood Culture - Preliminary Blood Assessment and Plan Assessment: 29 year old now POD#6 s/p primary section for arrest of descent Plan: 1. postoperative. doing well, meeting all milestones appropritaely. 2. viable female . in nursery receiving IV abx. 3. PPH. Hgb now stable, patient asymptomatic. Iron PO. 4. Gestational HTN. Current regimen Labetalol 200mg BID, Procardia XL 90mg qHS, Hydralazine 25 mg PO TID. 5. Chest pain. Medicine consulted. IL r/o with EKG, trops negative. CXR wnl. Feel this is gas pain. Dispo: Continue inpatient management until BPs stable.
[2024-08-01 08:11] VITALS: RESP 16
[2024-08-01] MEDS: ALPRAZolam 0.25 MG TAB PO STA (08:15)
[2024-08-01] MEDS: FAMOTIDINE 20 MG/2 ML VIAL IV SCH (09:17)
[2024-08-01] MEDS: hydrALAZINE HCL 25 MG TAB PO SCH (10:35)
--- NOTE | 2024-08-01 10:55 | P.PN ---
Subjective Progress Note Date: 08/01/24 No new complaints today. BPs are better controlled. Gen: In NAD, non-toxic HEENT: normocephalic, atraumatic, hearing acuity is intant, mucous membranes moist CVS: perfusing all extremities well, no pitting edema, Respiratory: symmetric chest expansion, no accessory muscle use, GI: soft, NTTP, ND, : no suprapubic tenderness, no CVA tenderness MSK/Derm: no rashes, cyanosis Neuro: CN II-XII intact, no motor weakness, Psych: cooperative, euthymic mood, judgment and insight is intact Hospital course: Patient is a 29-year-old female who is status post low transverse on 07/26, complicated by gestational diabetes mellitus, without prior history of high blood pressure who was seen as a medical consult for elevated blood pressure and chest discomfort. Of note, the patient did receive 3 units of PRBCs. Chest x-ray was unremarkable with EKG also reviewed showing sinus rhythm with diffuse T wave inversions without any ST segment changes noted as reviewed by me. Laboratory evaluation was remarkable for hemoglobin of 7.5. Assessment: Hypertension, POD # 5 Intermittent chest discomfort with shortness of breath, concern for possible component of anxiety Plan: Continue with Procardia 30 mg p.o. daily along with labetalol 300 mg p.o. twice daily. Add hydralazine 25 mg p.o. 3 times daily Xanax 0.25 mg po once ordered Trend troponin We appreciate this opportunity to be involved in this patient's care. We will follow the patient with you. For any further questions, please not hesitate to contact the [facility] inpatient team. Objective - Vital Signs Vital signs: Vital Signs Temp 97.2 F L 08/01/24 08:00 Pulse 75 08/01/24 08:00 Resp 16 08/01/24 08:00 BP 116/77 08/01/24 08:00 Pulse Ox 98 08/01/24 08:00 FiO2 Intake & Output 07/31/24 08/01/24 08/01/24 18:59 06:59 18:59 Intake Total 480 Balance 480 Intake: Oral 480 Other: Voiding Method Toilet # Voids 2 1 # Bowel Movements 1 - Labs CBC & Chem 7: 07/30/24 09:15 07/30/24 09:15 Labs: Microbiology - Last 24 Hours (Table) 07/30/24 08:40 Blood Culture - Preliminary Blood
[2024-08-01 16:44] VITALS: TEMP 98
--- NOTE | 2024-08-01 16:59 | P.DS ---
Providers Date of admission: 07/26/24 03:35 Expected date of discharge: 08/01/24 Attending physician: Prachi Gonzalez Consults: 07/31/24 22:02 Consult Physician Stat Consulting Provider: Neeraj Villalta Consult Reason/Comments: Elevated Blood pressure and chest pain Do you want consulting provider notified?: Yes Primary care physician: Stated None Hospital Course: Ms. Rae is a 29 year old now POD#6 s/p primary section for arrest of descent whose postoperative course was complicated by gestational hypertension for which she is now well controlled on a regimen of Labetalol 300mg BID, Hydralazine 25mg BID, and Procardia XL 30mg daily. She also had an episode of chest pain that was ultimately felt to be due to anxiety and gas pain after work-up for DC with EKG, troponins, and chest x-ray were all negative. The patient feels very well today and desires discharge home. We reviewed post-operative restrictions including no lifting heavier than 15 pounds and pelvic rest for 6 weeks. She is encouraged to call the office for any fevers, chills, worsening pain, nausea/vomiting, foul-smelling vaginal discharge, or concerns for mastitis. She will use OTC Motrin and Tylenol as needed for pain. All questions are answered. Assessment: 29 year old now POD#6 s/p primary section Patient Condition at Discharge: Good Plan - Discharge Summary New Discharge Prescriptions: New Docusate [Colace] 100 mg PO BID PRN #60 capsule PRN Reason: Constipation Ferrous Sulfate [Iron (65 MG Elemental)] 325 mg PO DAILY #30 tab Labetalol [Trandate] 200 mg PO BID #60 tab hydrALAZINE HCL [Apresoline] 25 mg PO BID #60 tab NIFEdipine XL [Procardia XL] 30 mg PO DAILY #30 tab Acetaminophen Tab [Tylenol] 1,000 mg PO Q8HR tab No Action Vit No.179/Iron/Folic [ Tablet] 1 each PO DAILY PARoxetine HCL [Paxil] 30 mg PO DAILY Omeprazole [PriLOSEC] 10 mg PO DAILY Discharge Medication List Omeprazole [PriLOSEC] 10 mg PO DAILY 07/21/24 [History] PARoxetine HCL [Paxil] 30 mg PO DAILY 12/18/24 [History] Vit No.179/Iron/Folic [ Tablet] 1 each PO DAILY 07/21/24 [History] Acetaminophen Tab [Tylenol] 1,000 mg PO Q8HR tab 08/01/24 [Rx] Docusate [Colace] 100 mg PO BID PRN #60 capsule 08/01/24 [Rx] Ferrous Sulfate [Iron (65 MG Elemental)] 325 mg PO DAILY #30 tab 08/01/24 [Rx] Labetalol [Trandate] 200 mg PO BID #60 tab 08/01/24 [Rx] NIFEdipine XL [Procardia XL] 30 mg PO DAILY #30 tab 08/01/24 [Rx] hydrALAZINE HCL [Apresoline] 25 mg PO BID #60 tab 08/01/24 [Rx] Follow up Appointment(s)/Referral(s): Prachi Gonzalez DO [Doctor of Osteopathic Medicine] - 09/06/24 1:30 pm [facility] [NON-STAFF] - 1 Week Discharge Disposition: HOME SELF-CARE
[2024-08-01 18:20] VITALS: BP 128/78; PULSE 82
[2024-08-01] MEDS ORDERED: LABETALOL 200 MG TAB PO SCH (21:00)
== END 2024-08-01 18:32 | disposition home or self-care (01) | DRG 540 ==
LOC: FBPOP 03:09 → 4FBP 03:35
PROVIDERS: ADMIT Obstetrics & Gynecology; ATTEND Obstetrics & Gynecology
PROC: 30233N1 Transfusion of Nonautologous Red Blood Cells into Peripheral Vein, Percutaneous Approach (ICD-10-PCS; 2024-07-26)
PROC: 0W3R7ZZ Control Bleeding in Genitourinary Tract, Via Natural or Artificial Opening (ICD-10-PCS; 2024-07-26)
PROC: 10D00Z1 Extraction of Products of Conception, Low, Open Approach (ICD-10-PCS; principal; 2024-07-26 16:20)
DX: O42.02 Full-term premature rupture of membranes, onset of labor within 24 hours of rupture (principal); O14.95 Unspecified pre-eclampsia, complicating the puerperium; O24.429 Gestational diabetes mellitus in childbirth, unspecified control; D62 Acute posthemorrhagic anemia; F32.A Depression, unspecified; Z37.0 Single live birth; O62.1 Secondary uterine inertia; O76 Abnormality in fetal heart rate and rhythm complicating labor and delivery; R53.83 Other fatigue; O99.02 Anemia complicating childbirth; R07.89 Other chest pain; O13.5 Gestational [pregnancy-induced] hypertension without significant proteinuria, complicating the puerperium; O99.345 Other mental disorders complicating the puerperium; F41.9 Anxiety disorder, unspecified; Z3A.38 38 weeks gestation of pregnancy; Z79.899 Other long term (current) drug therapy
CPT/HCPCS: 59025; 71046; 80053; 81001; 82565; 82570; 83615; 83735; 84156; 84450; 84460; 84484; 84520; 84550; 85025; 85027; 85384; 85610; 85730; 86850; 86900; 86901; 86920; 87040; 88307; 93005; 99213